=== PATIENT | female | born 1975 | race Caucasian/White ===

== ENCOUNTER 2021-02-01 11:07 | Outpatient (REF) | payer OTHER, SELFPAY ==
[2021-02-01 13:59] LABS: MANUAL DIFF FLAG NO
[2021-02-01 14:08] LABS: Basophils Absolute Auto 0.1 X10*3/uL (0.0-0.2); Basophils Percent Auto 0.5 % (0-2); Eosinophils Absolute Auto 0.1 X10*3/uL (0.0-0.4); Eosinophils Percent Auto 1.3 % (0-4); Hematocrit 44.2 % (37-47); Hemoglobin 14.3 g/dl (12.0-16.0); Imm Gran Abs Auto 0.03 X10*3/uL (0.00-0.03); Imm Gran Pct Auto 0.3 % (0.0-0.4); Lymphocytes Absolute Auto 2.2 X10*3/uL (1.2-4.9); Mean Corpuscular HGB Conc 32.4 g/dl (31.0-35.0); Mean Corpuscular Hemoglobin 26.3 pg (27.0-33.0); Mean Corpuscular Volume 81.3 fL (80-98); Mean Platelet Volume 11.2 fL (9.4-12.3); Monocytes Absolute Auto 0.8 X10*3/uL (0.1-1.2); Monocytes Percent Auto 7.7 % (2-11); Neutrophils Percent Auto 68.2 % (45-73); Platelet Count 271 X10*3/uL (160-400); Red Blood Count 5.44 X10*6/uL (4.20-5.50); Red Cell Distribution Width 14.6 % (11.0-16.0); White Blood Count 10.2 X10*3/uL (4.8-10.8)
[2021-02-01 14:32] LABS: Alanine Aminotransferase 16 U/L (0-31); Albumin Level 4.2 g/dL (3.5-5.0); Alkaline Phosphatase 77 U/L (39-117); Anion Gap 13 (12-20); Aspartate Amino Transferase 21 U/L (5-31); Bilirubin Total 0.3 mg/dL (0.0-1.0); Blood Urea Nitrogen 10 mg/dL (9-16); Calcium 8.7 mg/dL (8.4-10.2); Carbon Dioxide 27 mmol/L (22-29); Chloride 105 mmol/L (96-108); Estimated Glomerular Filt Rate > 60; Glucose Random 80 mg/dL (60-115); Potassium 4.2 mmol/L (3.3-5.1); Sodium 141 mmol/L (135-145)
[2021-02-01 14:41] LABS: TSH reflex Free T4 1.46 uIU/mL (0.32-4.0)
[2021-02-02 13:32] LABS: Anti Nuclear Antibody Screen NEGATIVE (NEGATIVE)
[2021-02-02 13:56] LABS: Antibody to SS-A Antigen <1.0 NEG AI (<1.0 NEG); Antibody to SS-B Antigen <1.0 NEG AI (<1.0 NEG)
[2021-02-08 14:22] LABS: DNAds, Crithidia Antibody Negative (Negative)
== END 2021-02-01 11:08 | disposition home or self-care (01) ==
LOC: HO.LAB 11:07
PROVIDERS: PCP Nurse Practitioner Family; Visit Provider Nurse Practitioner Family
DX: R21 Rash and other nonspecific skin eruption (principal); U07.1 COVID-19; R53.83 Other fatigue
CPT/HCPCS: 36415; 80053; 84443; 85025; 86038; 86039; 86235; 86255

== ENCOUNTER 2021-05-25 10:40 | Outpatient (REF) | payer OTHER, SELFPAY | END 2021-05-25 10:41 | disposition home or self-care (01) | LOC: HO.BBR 10:40 | PROVIDERS: Visit Provider Internal Medicine Medical Oncology | DX: D75.1 Secondary polycythemia (principal) | CPT/HCPCS: 36415; 85018; 99195 ==

== ENCOUNTER 2022-03-05 11:55 | Outpatient (REF) | payer OTHER, SELFPAY ==
[2022-03-05 14:24] LABS: Alanine Aminotransferase 16 U/L (0-31); Albumin Level 4.2 g/dL (3.5-5.0); Alkaline Phosphatase 80 U/L (39-117); Anion Gap 10 (12-20); Aspartate Amino Transferase 19 U/L (5-31); Bilirubin Total 0.5 mg/dL (0.0-1.0); Blood Urea Nitrogen 9 mg/dL (9-16); Calcium 9.6 mg/dL (8.4-10.2); Carbon Dioxide 27 mmol/L (22-29); Chloride 105 mmol/L (96-108); Cholesterol 236 mg/dL; Estimated Glomerular Filt Rate > 60; Glucose Random 93 mg/dL (60-115); HDL Cholesterol 50 mg/dL; LDL Cholesterol Calculated 156 mg/dl; Potassium 3.9 mmol/L (3.3-5.1); Sodium 138 mmol/L (135-145); Total Protein 6.8 g/dL (6.5-8.0); Triglycerides 152 mg/dL
== END 2022-03-05 11:56 | disposition home or self-care (01) ==
LOC: HO.HMGCLDS 11:55
PROVIDERS: Visit Provider Nurse Practitioner Family
DX: E78.5 Hyperlipidemia, unspecified (principal); R25.2 Cramp and spasm
CPT/HCPCS: 36415; 80053; 80061; 83735

== ENCOUNTER 2022-05-08 10:37 | Outpatient (REF) | payer OTHER, SELFPAY ==
--- NOTE | ~2022-05-08 | XR_ITS ---
EXAMINATION: XR CERVICAL SPINE CLINICAL INFORMATION: Neck pain COMPARISON: None TECHNIQUE: 3 views of the cervical spine were obtained. FINDINGS: Bone alignment is normal. No fracture or dislocation is seen. There is mild degenerative spondylosis and disc space narrowing at C4-C5. Prevertebral soft tissues are normal. XR/XR cervical spine 4V IMPRESSION: Degenerative changes at C4-C5.
[2022-05-08 13:52] LABS: MANUAL DIFF FLAG NO
[2022-05-08 13:59] LABS: Basophils Absolute Auto 0.1 X10*3/uL (0.0-0.2); Basophils Percent Auto 0.6 % (0-2); Eosinophils Absolute Auto 0.1 X10*3/uL (0.0-0.4); Eosinophils Percent Auto 1.2 % (0-4); Hematocrit 46.4 % (37.0-47.0); Hemoglobin 16.2 g/dl (12.0-16.0); Imm Gran Abs Auto 0.03 X10*3/uL (0.00-0.03); Imm Gran Pct Auto 0.3 % (0.0-0.4); Lymphocytes Absolute Auto 2.7 X10*3/uL (1.2-4.9); Lymphocytes Percent Auto 30.8 % (20-40); Mean Corpuscular HGB Conc 34.9 g/dl (31.0-35.0); Mean Corpuscular Hemoglobin 30.7 pg (27.0-33.0); Mean Corpuscular Volume 87.9 fL (80.0-98.0); Mean Platelet Volume 10.9 fL (9.4-12.3); Monocytes Absolute Auto 0.7 X10*3/uL (0.1-1.2); Monocytes Percent Auto 7.7 % (2-11); Neutrophils Absolute Auto 5.1 x10*3/uL (2.0-8.3); Neutrophils Percent Auto 59.4 % (45-73); Platelet Count 298 X10*3/uL (160-400); Red Blood Count 5.28 X10*6/uL (4.20-5.50); White Blood Count 8.7 X10*3/uL (4.8-10.8)
[2022-05-08 14:01] LABS: Appearance Urine CLEAR; Color Urine YELLOW; Glucose Urine UA NEG (NEG); Leukocyte Esterase Urine NEG (NEG); Nitrite Urine NEG (NEG); PH 5.5 (5.0-8.0); Specific Gravity - Urine <= 1.005 (1.005-1.025); UACC Culture Trigger NO; Urine Blood 2+ (NEG); Urine Ketones NEG (NEG); Urine Protein NEG (NEG-TRACE)
[2022-05-08 14:08] LABS: Bacteria Urine TRACE /LPF; Squamous Epithelial Cell Urine 1+ /LPF; WBC Urine 0-2 /HPF (0-4)
[2022-05-08 14:09] LABS: RBC Urine 0 /HPF (0)
[2022-05-08 14:22] LABS: Alanine Aminotransferase 22 U/L (0-31); Albumin Level 4.7 g/dL (3.5-5.0); Alkaline Phosphatase 80 U/L (39-117); Anion Gap 13 (12-20); Aspartate Amino Transferase 24 U/L (5-31); Bilirubin Total 0.9 mg/dL (0.0-1.0); Blood Urea Nitrogen 11 mg/dL (9-16); Calcium 9.4 mg/dL (8.4-10.2); Carbon Dioxide 26 mmol/L (22-29); Chloride 104 mmol/L (96-108); Cholesterol 260 mg/dL; Estimated Glomerular Filt Rate > 60; Glucose Fasting 89 mg/dL (60-99); HDL Cholesterol 57 mg/dL; LDL Cholesterol Calculated 176 mg/dl; Sodium 139 mmol/L (135-145); Total Protein 7.4 g/dL (6.5-8.0); Triglycerides 135 mg/dL
[2022-05-08 14:30] LABS: TSH reflex Free T4 1.09 uIU/mL (0.32-4.0)
[2022-05-08 14:33] LABS: TSH reflex Free T4 1.09 uIU/mL (0.32-4.0)
[2022-05-08 14:56] LABS: Folate 19.9 ng/mL (> or = 4.0); Vitamin B12 295 pg/mL (200-900)
[2022-05-14 14:22] LABS: Vitamin D 25-OH, D2 <4 ng/mL; Vitamin D 25-OH, D3 34 ng/mL; Vitamin D 25-OH, Total 34 ng/mL (30-100)
[2022-05-14 15:21] LABS: Vitamin B6 19.4 ng/mL (2.1-21.7)
== END 2022-05-08 10:38 | disposition home or self-care (01) ==
LOC: HO.HMGCX 10:37
PROVIDERS: Absent Provider Psychiatry & Neurology Neurology; PCP Nurse Practitioner Family; Visit Provider Nurse Practitioner Family
DX: Z00.00 Encounter for general adult medical examination without abnormal findings (principal); R25.2 Cramp and spasm; L65.9 Nonscarring hair loss, unspecified; E78.5 Hyperlipidemia, unspecified
CPT/HCPCS: 36415; 72050; 80053; 80061; 81001; 81003; 82306; 82607; 82746; 84207; 84443; 85025

== ENCOUNTER → 2022-06-18 10:48 | Outpatient (REF) | payer OTHER, SELFPAY | LOC: HO.SL 10:48 | PROVIDERS: Visit Provider Psychiatry & Neurology Neurology | DX: R06.83 Snoring (principal); G47.10 Hypersomnia, unspecified; D75.1 Secondary polycythemia; I10 Essential (primary) hypertension | CPT/HCPCS: 95806 ==

== ENCOUNTER 2022-08-30 13:17 | Outpatient (REF) | payer OTHER, SELFPAY ==
[2022-08-30 13:31] LABS: MANUAL DIFF FLAG NO
[2022-08-30 14:03] LABS: Basophils Percent Auto 0.3 % (0-2); Eosinophils Absolute Auto 0.2 X10*3/uL (0.0-0.4); Eosinophils Percent Auto 1.8 % (0-4); Hematocrit 45.5 % (37.0-47.0); Hemoglobin 15.8 g/dl (12.0-16.0); Imm Gran Abs Auto 0.02 X10*3/uL (0.00-0.03); Imm Gran Pct Auto 0.2 % (0.0-0.4); Lymphocytes Absolute Auto 2.6 X10*3/uL (1.2-4.9); Lymphocytes Percent Auto 29.6 % (20-40); Mean Corpuscular HGB Conc 34.7 g/dl (31.0-35.0); Mean Corpuscular Hemoglobin 30.3 pg (27.0-33.0); Mean Corpuscular Volume 87.2 fL (80.0-98.0); Mean Platelet Volume 10.6 fL (9.4-12.3); Monocytes Absolute Auto 0.9 X10*3/uL (0.1-1.2); Monocytes Percent Auto 10.3 % (2-11); Neutrophils Absolute Auto 5.1 x10*3/uL (2.0-8.3); Neutrophils Percent Auto 57.8 % (45-73); Platelet Count 291 X10*3/uL (160-400); Red Blood Count 5.22 X10*6/uL (4.20-5.50); Red Cell Distribution Width 11.7 % (11.0-16.0); White Blood Count 8.8 X10*3/uL (4.8-10.8)
[2022-08-30 14:04] LABS: Appearance Urine Clear; Color Urine Yellow; Glucose Urine UA Negative (Negative); Leukocyte Esterase Urine Trace (Negative); Nitrite Urine Negative (Negative); PH 7.5 (5.0-9.0); Specific Gravity - Urine <= 1.005 (1.005-1.025); UMIC TRIGGER UACC YES; Urine Blood Negative (Negative); Urine Ketones Negative (Negative); Urine Protein Negative (Neg-Trace)
[2022-08-30 14:10] LABS: Bacteria Urine None Seen (None Seen); Hyaline Casts Urine 0-2 /LPF (0-2); RBC Urine 0-2 /HPF (0-2); Squamous Epithelial Cell Urine 0-2 /HPF (0-2); WBC Urine 0-5 /HPF (0-5)
[2022-08-30 14:41] LABS: Erythrocyte Sedimentation Rate 2 MM/HR (0-20)
[2022-08-30 15:09] LABS: C Reactive Protein 0.09 mg/dL (< or = 0.50); Cholesterol 202 mg/dL; HDL Cholesterol 57 mg/dL; LDL Cholesterol Calculated 103 mg/dl; Triglycerides 211 mg/dL
[2022-09-02 13:21] LABS: Anti Nuclear Antibody Screen NEGATIVE (NEGATIVE)
[2022-09-05 13:56] LABS: DNAds, Crithidia Antibody Negative (Negative)
== END 2022-08-30 13:18 | disposition home or self-care (01) ==
LOC: HO.LAB 13:17
PROVIDERS: PCP Nurse Practitioner Family; Visit Provider Nurse Practitioner Family
DX: R53.83 Other fatigue (principal); E78.5 Hyperlipidemia, unspecified; R21 Rash and other nonspecific skin eruption
CPT/HCPCS: 36415; 80061; 81001; 81003; 85025; 85652; 86038; 86039; 86140; 86255